=== PATIENT | male | born 1975 | race African-American/Black ===

== ENCOUNTER 2022-07-15 17:57 | Emergency (ER) | payer MEDICAID ==
[~2022-07-15] VITALS: Ht 180.3 cm; Wt 83.9 kg
--- NOTE | 2022-07-15 18:12 | NUR ---
TO ER BED 2, C/O LEFT JAW ABSCESS X 1 WEEK, AAOX3, BREATHING EVEN AND NON LABORED, CONNECTED TO MONITOR.
[2022-07-15] MEDS ORDERED: IOHEXOL-300 100 ML VIAL IV ONE (18:31)
[2022-07-15] MEDS ORDERED: IV NS 0.9% 250 ML IV ONE (18:31)
--- NOTE | 2022-07-15 18:38 | NUR ---
TAKEN TO CT VIA [facility]
[2022-07-15 19:03] LABS: CALCIUM, SERUM 8.6 mg/dL (8.5-10.1); CREATININE 1.2 mg/dL (0.6-1.3); POTASSIUM 3.9 mmol/L (3.5-5.1)
[2022-07-15 19:59] LABS: BASOPHILS % (AUTO) 0.4 % (0.0-2.0); EOSINOPHILS % (AUTO) 0.8 % (0.0-6.0); HEMATOCRIT 43 % (39-51); HEMOGLOBIN 14.1 g/dL (13.5-17.5); LYMPHOCYTES % (AUTO) 24.3 % (20.0-44.0); MEAN CORPUSCULAR HGB CONC 33 g/dl (31.0-36.0); MEAN CORPUSCULAR VOLUME 91 fL (80-96); MONOCYTES # (AUTO) 0.4 K/uL (0.1-1.30); MONOCYTES % (AUTO) 4.8 % (2.0-12.0); NEUTROPHILS # (AUTO) 5.7 K/uL (1.8-8.9); NEUTROPHILS % (AUTO) 69.7 % (43.0-81.0); PLATELET COUNT (AUTO) 271 K/uL (150-450); RED BLOOD CELL COUNT(AUTO) 4.76 MIL/uL (4.5-6.0); WHITE BLOOD COUNT (AUTO) 8.2 K/uL (4.3-11.0)
[2022-07-15] MEDS ORDERED: LIDOCAINE 1% INJ 50 ML MDV IJ ONE (20:32)
[2022-07-15] MEDS: LIDOCAINE 1% INJ 50 ML MDV IJ ONE (20:42)
[2022-07-15] MEDS ORDERED: LIDOCAINE 2% 20 ML MDV ONE (21:15)
--- NOTE | 2022-07-15 21:30 | NUR ---
AT BEDSIDE FOR I&D
[2022-07-15] MEDS ORDERED: CEPH500C2 PO (22:09)
[2022-07-15] MEDS ORDERED: IBUP-1955 PO (22:09)
[2022-07-15] MEDS ORDERED: SULF1TAB48 PO (22:09)
--- NOTE | 2022-07-15 22:18 | NUR ---
Patient discharged to home in stable condition. Written and verbal after care instructions given. Patient verbalizes understanding of instruction.IV removed. Catheter intact and site benign. Pressure and 4x4 applied to site. No bleeding noted. Pt ambulatory with a steady gait
[2022-07-15 22:19] VITALS: BP 143/90
== END 2022-07-15 22:19 | disposition home or self-care (01) ==
LOC: ER 18:05
DX: L02.01 Cutaneous abscess of face (principal); R51.9 Headache, unspecified; Z79.899 Other long term (current) drug therapy
CPT/HCPCS: 99285; 10060; 70487; 85025; 80048; 87040 ×2; 36415; J3490 ×2; J7050; Q9967

== ENCOUNTER 2022-07-17 15:12 | Emergency (ER) | payer MEDICAID ==
[~2022-07-17] VITALS: Ht 180.3 cm; Wt 83.9 kg
[~2022-07-17 15:12] MED LIST: CEPH500C2 PO; IBUP-1955 PO; SULF1TAB48 PO
[2022-07-17 16:18] VITALS: BP 116/68
--- NOTE | 2022-07-17 17:12 | NUR ---
Patient discharged to home in stable condition. Written and verbal after care instructions given. Patient verbalizes understanding of instruction.
== END 2022-07-17 17:12 | disposition home or self-care (01) ==
LOC: ER 15:14
DX: Z48.00 Encounter for change or removal of nonsurgical wound dressing (principal); L02.01 Cutaneous abscess of face; Z79.899 Other long term (current) drug therapy